=== PATIENT | female | born 1975 | race Two or more races ===

== ENCOUNTER 2023-09-08 11:16 | Inpatient (IN) | payer MEDICAID, OTHER ==
[~2023-09-08] VITALS: Ht 157.5 cm; Wt 78.5 kg
[2023-09-08 12:28] LABS: Basophils # (auto) 0.1 10 ^3/uL (0-0.2); Basophils % (auto) 2.6 % (0.0-2.0); Eosinophils # (auto) 0.1 10 ^3/uL (0-0.8); Hematocrit 42.3 % (36.0-46.0); Hemoglobin 14.5 g/dL (12.2-16.2); Lymphocytes % (auto) 20.2 % (10.0-50.0); Mean Corpuscular Hemoglobin 30.1 pg (28.0-32.0); Mean Corpuscular Hgb Conc. 34.2 g/dL (32.0-36.0); Monocytes # (auto) 0.4 10 ^3/uL (0-1.3); Neutrophils # (auto) 3.3 10 ^3/uL (1.6-8.6); Neutrophils % (auto) 67.2 % (37.0-80.0); Nucleated Red Blood Cells % 0.1 %; Red Blood Cells 4.81 10^6/uL (4.0-5.20); Red Cell Distribution Width 12.3 % (11.8-14.3)
[2023-09-08 12:35] LABS: Alanine Aminotransferase 48 U/L (7-40); Albumin 4.8 g/dL (3.2-4.8); Alkaline Phosphatase 55 U/L (46-116); Anion Gap 12 (5-15); Aspartate Aminotransferase 23 U/L (13-40); BUN/Creatinine Ratio 14.9 (10.0-20.0); Blood Urea Nitrogen 11 mg/dL (9-23); Calcium 10.2 mg/dL (8.5-10.1); Carbon Dioxide 23 mmol/L (20-30); Chloride 104 mmol/L (98-107); Glucose 120 mg/dL (74-106); Potassium 4.1 mmol/L (3.5-5.1); Sodium 139 mmol/L (136-145)
[2023-09-08 12:36] LABS: Bilirubin, Total 0.4 mg/dL (0.2-1.0); Total Protein 6.9 g/dL (5.7-8.2)
[2023-09-08 12:48] LABS: Lactic Acid w/Reflex 2.6 mmol/L (0.4-2.0)
[2023-09-08] MEDS ORDERED: SODIUM CHLORIDE 0.9% 1,000 ML IV ONE (13:00)
[2023-09-08 15:58] LABS: Urine Bacteria NONE SEEN /hpf (None Seen); Urine Blood Negative /uL (Negative); Urine Clarity Clear (Clear); Urine Color Yellow (Yellow); Urine Mucus FEW (None Seen); Urine Protein, UAD Negative (Negative); Urine Urobilinogen Normal (Negative); Urine WBC 4 /hpf (0 - 5)
[2023-09-08] MEDS ORDERED: ONDANSETRON HCL 4 MG/2 ML VIAL IV PRN (19:45)
[2023-09-08] MEDS ORDERED: NITROGLYCERIN 0.4 MG SL TAB SL PRN (19:45)
[2023-09-08] MEDS ORDERED: MORPHINE SULFATE 4 MG/ML SYR/VIAL IV PRN (19:45)
[2023-09-08 19:51] VITALS: PULSE 90
[2023-09-08 20:37] LABS: INR 1.08 (0.9-1.15); Prothrombin Time 11.3 sec (9.3-11.8)
[2023-09-08] MEDS: METOPROLOL TARTRATE 25 MG TAB PO SCH (22:42)
[2023-09-08] MEDS: ATORVASTATIN 20 MG TAB PO SCH (22:42)
[2023-09-09] VITALS (21 sets, daily range): BP systolic 103–125; BP diastolic 46–84; PULSE 65–79; RESP 15–18; TEMP 97.8–98.2; O2SAT 95–98
[2023-09-09] MEDS ORDERED: FERR-7 PO (08:36)
[2023-09-09] MEDS ORDERED: LISI20TA56 PO (08:36)
[2023-09-09] MEDS ORDERED: METF-370 PO (08:36)
[2023-09-09] MEDS ORDERED: ASPI81CH59 PO (08:36)
[2023-09-09] MEDS ORDERED: DULO20CA PO (08:36)
[2023-09-09 08:43] LABS: Basophils # (auto) 0.1 10 ^3/uL (0-0.2); Basophils % (auto) 2.2 % (0.0-2.0); Eosinophils # (auto) 0.1 10 ^3/uL (0-0.8); Eosinophils % (auto) 2.7 % (0.0-7.0); Hemoglobin 14.1 g/dL (12.2-16.2); Lymphocytes % (auto) 25.1 % (10.0-50.0); Mean Corpuscular Hemoglobin 29.8 pg (28.0-32.0); Mean Corpuscular Hgb Conc. 33.6 g/dL (32.0-36.0); Mean Corpuscular Volume 88.7 fL (80.0-100.0); Monocytes # (auto) 0.4 10 ^3/uL (0-1.3); Monocytes % (auto) 10.1 % (0.0-12.0); Neutrophils # (auto) 2.3 10 ^3/uL (1.6-8.6); Neutrophils % (auto) 59.9 % (37.0-80.0); Nucleated Red Blood Cells % 0.1 %; Red Blood Cells 4.74 10^6/uL (4.0-5.20); Red Cell Distribution Width 12.1 % (11.8-14.3); White Blood Cell 3.9 10^3/uL (4.4-10.8)
[2023-09-09 08:55] LABS: Alanine Aminotransferase 47 U/L (7-40); Albumin 4.6 g/dL (3.2-4.8); Alkaline Phosphatase 52 U/L (46-116); Anion Gap 11 (5-15); Aspartate Aminotransferase 26 U/L (13-40); BUN/Creatinine Ratio 9.7 (10.0-20.0); Bilirubin, Total 0.5 mg/dL (0.2-1.0); Blood Urea Nitrogen 7 mg/dL (9-23); Calcium 9.6 mg/dL (8.5-10.1); Carbon Dioxide 23 mmol/L (20-30); Chloride 106 mmol/L (98-107); Cholesterol 98 mg/dL (< 200); Glucose 140 mg/dL (74-106); HDL Cholesterol 39 mg/dL (40-59); LDL Cholesterol 48 mg/dL (< 100); Potassium 3.7 mmol/L (3.5-5.1); Sodium 140 mmol/L (136-145); Total Protein 6.8 g/dL (5.7-8.2); Triglycerides 131 mg/dL (< 150)
[2023-09-09] MEDS: DOCUSATE SOD 100 MG CAP PO SCH (10:00)
[2023-09-09] MEDS: METOPROLOL TARTRATE 25 MG TAB PO SCH ×2 (10:00→22:53)
[2023-09-09] MEDS ORDERED: DEXTROSE (50%) 50ML SYRG IV PRN (10:15)
[2023-09-09] MEDS: ASPirin 81 mg TAB PO SCH (10:56)
[2023-09-09] MEDS: InsuLIN REG 1unit/0.01ml Soln (100units/ml) SC SCH ×3 (11:30→22:00)
[2023-09-09] MEDS: ACCU-CHEK COMFORT CURVE STRIP VI SCH ×3 (11:30→22:53)
[2023-09-09] MEDS ORDERED: VERAPAMIL 2.5MG/ML INJ 2ML VIAL IV ONE (13:29)
[2023-09-09] MEDS ORDERED: HEPARIN SODIUM (PORCINE) 5000 UNITS/ML 1ML VIAL ONE (13:29)
[2023-09-09] MEDS ORDERED: ANGIOMAX 250 MG VIAL IV ONE (13:29)
[2023-09-09] MEDS ORDERED: SODIUM CHL 0.9% 0 ML ONE (13:30)
[2023-09-09] MEDS ORDERED: LIDOCAINE 2%HCL (LOCAL ANESTH.) INJ 20ML MDV ONE (13:30)
[2023-09-09] MEDS ORDERED: MIDAZOLAM HCL 2MG/2ML 2ml VIAL (1mg/ml) ONE (13:30)
[2023-09-09] MEDS ORDERED: fentaNYL CITRATE 100 MCG/2 ML VL ONE (13:30)
[2023-09-09 13:36] LABS: INR 1.04 (0.9-1.15); Partial Thromboplastin Time 26.8 SEC (24.5-34.5); Prothrombin Time 10.9 sec (9.3-11.8)
[2023-09-09] MEDS ORDERED: IODIXANOL 320MG/ML 100ML BTL IV ONE (14:12)
[2023-09-09] MEDS: ATORVASTATIN 20 MG TAB PO SCH (22:45)
[2023-09-10 05:00] VITALS: BP 112/76; PULSE 72; RESP 16; TEMP 97.7; O2SAT 96
[2023-09-10] MEDS: ACCU-CHEK COMFORT CURVE STRIP VI SCH ×3 (06:29→16:25)
[2023-09-10] MEDS: InsuLIN REG 1unit/0.01ml Soln (100units/ml) SC SCH ×3 (06:31→16:26)
[2023-09-10 08:00] VITALS: PULSE 65; PULSE 74; RESP 18
[2023-09-10] MEDS: METOPROLOL TARTRATE 25 MG TAB PO SCH (08:17)
[2023-09-10] MEDS: ASPirin 81 mg TAB PO SCH (08:17)
[2023-09-10] MEDS: DOCUSATE SOD 100 MG CAP PO SCH (08:19)
[2023-09-10] MEDS: ACETAMINOPHEN 325 MG TAB PO PRN ×2 (08:23→10:08)
[2023-09-10 09:10] VITALS: BP 110/72; PULSE 65; RESP 18; TEMP 98.6; O2SAT 98
[2023-09-10] MEDS ORDERED: DULoxetine HCL 30 MG CAP PO SCH (10:00)
[2023-09-10 13:51] VITALS: BP 120/85; PULSE 69; RESP 18; TEMP 98.6; O2SAT 95
[2023-09-10 16:56] VITALS: BP 122/86; PULSE 76; RESP 16; TEMP 98.1; O2SAT 97
== END 2023-09-10 18:16 | disposition home or self-care (01) | DRG 191 ==
LOC: EDBD 11:16 → ER 11:16 → TELE 19:49 → TELE-CENTR 09-09 08:19
PROVIDERS: ADMIT Nurse Practitioner Family; ATTEND Internal Medicine
PROC: 4A023N7 Measurement of Cardiac Sampling and Pressure, Left Heart, Percutaneous Approach (ICD-10-PCS; principal; 2023-09-09)
PROC: B211YZZ Fluoroscopy of Multiple Coronary Arteries using Other Contrast (ICD-10-PCS; 2023-09-09)
PROC: B215YZZ Fluoroscopy of Left Heart using Other Contrast (ICD-10-PCS; 2023-09-09)
DX: I25.110 Atherosclerotic heart disease of native coronary artery with unstable angina pectoris (principal); E11.9 Type 2 diabetes mellitus without complications; I10 Essential (primary) hypertension; E78.5 Hyperlipidemia, unspecified; E66.9 Obesity, unspecified; Z68.31 Body mass index [BMI] 31.0-31.9, adult; Z82.49 Family history of ischemic heart disease and other diseases of the circulatory system; Z83.3 Family history of diabetes mellitus; Z90.710 Acquired absence of both cervix and uterus; Z90.49 Acquired absence of other specified parts of digestive tract; Z86.19 Personal history of other infectious and parasitic diseases
CPT/HCPCS: 36415; 71045; 80053; 80061; 81001; 82962; 83605; 83735; 83880; 84484; 85025; 85379; 85610; 85730; 86850; 86900; 86901; 93005; 93306; 93458; 99152; G0378; J1815; J2250; Q9967